=== PATIENT | female | born 1995 | race Caucasian/White ===

== ENCOUNTER 2017-01-11 08:30 | Inpatient (IN) ==
[2017-01-11] MEDS ORDERED: 0.9 % Sodium Chloride 1,000 ML IVC ONE ×2 (08:42→21:32)
[2017-01-11] MEDS ORDERED: Ondansetron 4 MG/2 ML VIAL IVP ONE (08:42)
--- NOTE | 2017-01-11 08:46 | Emergency Department Note ---
Disposition Clinical Impression: Pyelonephritis, Ureterolithiasis Disposition: Admitted As Inpatient Condition: Fair Time of Disposition: 10:00 Female Urogenital HPI - General Chief complaint: ED Back Pain/Injury Stated complaint: Back/Abd Pain that feels horrible Time Seen by Provider: 01/11/17 08:36 Source: patient, family Limitations: no limitations Nursing Notes Reviewed: Yes Vital Signs Reviewed: Yes - History of Present Illness HPI Narrative: Alert and oriented nontoxic appearing 21-year-old female presents to the emergency department for a complaint of left flank pain that radiates into her groin. The patient states symptoms began approximately 2 weeks ago. She states that her mother gave her a "antibiotic that she had laying around the house" and that symptoms resolved. The patient states that she stopped taking the antibiotics as soon as she felt relief of symptoms. She states that yesterday, however, her pain returned. She now rates her pain an 8 out of 10 on a 10 point scale and describes it as sharp in nature. She now complains of subjective fevers, nausea, vomiting, and urinary urgency. She denies any dysuria, urinary frequency, hematuria. She does admit to mild vaginal discharge of bloody clots, however she is 2 weeks status post vaginal delivery of her . Pt Subjective Complaint: other (left flank pain, urinary urgency) Onset (ago): week(s) (2 weeks) Location: suprapubic, other (left flank) Radiation: other (left groin) Severity: severe Severity scale (1-10): 8 Quality: sharp Duration: gradually worsening Improves with: none Worsens with: none Urinary Symptoms: urgency, flank pain, no dysuria, no frequency, no hematuria, no foul smelling urine Vaginal discharge: blood clots : no Associated symptoms: Reports: nausea/vomiting, fever/chills - Related Data Home Medications Medication Instructions Recorded Confirmed Ibuprofen [Advil] 200 mg PO Q6H PRN 01/11/17 01/11/17 Allergies Allergy/AdvReac Type Severity Reaction Status Date / Time No Known Allergies Allergy Verified 01/11/17 10:14 Constitutional: Reports: as per HPI, fever, chills. Denies: weakness, weight change Eyes: Denies: eye pain, eye discharge, vision change ENT ED: Denies: ear pain, throat pain, dental pain, hearing loss, epistaxis, congestion, dysphagia Cardiovascular: Denies: chest pain, palpitations, dyspnea on exertion, edema, syncope Respiratory: Denies: cough, dyspnea, wheezes, hemoptysis, stridor Gastrointestinal: Reports: as per HPI, abdominal pain (Suprapubic pain and discomfort), nausea, vomiting. Denies: diarrhea, constipation, hematemesis, melena, hematochezia Genitourinary: Reports: as per HPI, urgency, discharge (Bloody). Denies: dysuria, frequency, hematuria Musculoskeletal: Reports: as per HPI, back pain (Left flank pain). Denies: neck pain, arthralgia, myalgia Integumentary: Denies: rash, abrasion, lesions Neurological: Denies: headache, weakness, numbness, paresthesias, confusion, abnormal gait, vertigo Psychiatric: Denies: anxiety, depression, suicidal thoughts, homicidal thoughts , auditory hallucinations, visual hallucinations Endocrine: Denies: fatigue Hematological/Lymphatic: Denies: easy bleeding, easy bruising Allergic/Immunologic: Denies: facial swelling, urticaria Past Medical History - Past Medical History Attestation: Yes The following information was validated with the patient. Source: patient Medical history: Reports: no medical history Surgical history: Reports: no surgical history Psychiatric history: Reports: no psych history MINERAL SURVEYING TECHNICIAN history: Reports: no MINERAL SURVEYING TECHNICIAN history - Social History Smoking Status: Never smoker Smokeless Tobacco Status: No Alcohol use: Reports: none Drug use: Reports: none Physical Exam - General Limitations: no limitations General appearance: alert, in no apparent distress - Head Head exam: atraumatic, normocephalic, normal inspection - Eye Eye exam: Present: normal appearance, PERRL, EOMI. Absent: nystagmus - ENT ENT exam: mucous membranes moist - Neck Neck exam: Present: normal inspection, full ROM, trachea midline - Chest Chest inspection: Present: normal inspection, symmetric chest wall rise - Respiratory Respiratory exam: Present: normal lung sounds bilaterally. Absent: respiratory distress, wheezes, stridor, accessory muscle use, prolonged expiratory phase - Cardiovascular Cardiovascular exam: Present: regular rate, normal rhythm, normal heart sounds - Abdominal Exam Abdominal exam: Present: soft, Non-Tender, tenderness, normal bowel sounds. Absent: distention, guarding, rebound, rigidity Abdominal tenderness: Present: suprapubic, moderate - Extremities Exam Extremities exam: Present: normal inspection, full ROM. Absent: tenderness, pedal edema - Back Exam Back exam: Present: normal inspection, full ROM, CVA tenderness (L). Absent: tenderness, CVA tenderness (R) - Neurological Exam Neurological exam: Present: alert, oriented X3 - Psychiatric Psychiatric exam: Present: normal affect, normal mood - Skin Skin exam: Present: warm, dry, intact, normal color. Absent: rash, cyanosis, diaphoresis, erythema Course Course Narrative: We will obtain a urinalysis, urine , CBC, and BMP. We will administer IV fluids and IV Zofran and reevaluate. Urinalysis shows the presence of a urinary tract infection. We will obtain a CT of the abdomen and pelvis without contrast to evaluate for the presence of a stone. 0930: I have discussed this patient's case with Dr. Contreras. Dr. Contreras has had a [id number] evaluation with the patient and agrees with the above plan. 1015: I spoke with Dr. Quezada of the hospitalist service requesting admission to the hospital. Dr. Quezada states that he will evaluate the patient in the ED. - Reevaluation(s) Reevaluation #1: Patient states moderate improvement of symptoms after the administration of IV fluid and IV Zofran. CT scan shows a 2 mm stone in the proximal one third of the left ureter that is causing moderate hydroureter and hydronephrosis. I have discussed with the patient the option of the possibility of hospital admission for IV antibiotics and symptomatic management and she is agreeable to this. At this time, I have paged the hospitalist in the morning awaiting a return call. Time: 09:58 Vital Signs Temperature 97.3 F L 01/11/17 08:32 Pulse Rate 83 01/11/17 08:32 Respiratory Rate 16 01/11/17 08:32 Blood Pressure 107/71 01/11/17 08:32 O2 Sat by Pulse Oximetry 98 01/11/17 08:32 Temperature 97.3 F L 01/11/17 08:32 Pulse Rate 76 01/11/17 09:05 Respiratory Rate 16 01/11/17 11:51 Blood Pressure 103/83 01/11/17 11:51 O2 Sat by Pulse Oximetry 98 01/11/17 09:05 Oxygen Delivery Oxygen Delivery Room Air Urogenital-Female - Medical Records Medical records reviewed: Yes I reviewed the patient's medical records. - Lab Data Lab results reviewed: Yes I reviewed the patient's lab results. Lab results narrative: Laboratory Last Values WBC 11.6 K/mcL (4.3-11.1) H 01/11/17 08:57 RBC 3.72 M/mcL (3.82-4.97) L 01/11/17 08:57 Hgb 10.5 g/dL (11.5-15.4) L 01/11/17 08:57 Hct 32.3 % (35.3-44.9) L 01/11/17 08:57 MCV 86.8 fL (83.0-100.0) 01/11/17 08:57 MCH 28.2 pg (28.0-33.3) 01/11/17 08:57 MCHC 32.5 g/dL (31.6-35.5) 01/11/17 08:57 RDW 12.7 % (11.5-14.5) 01/11/17 08:57 Plt Count 294 K/mcL (140-400) 01/11/17 08:57 MPV 10.0 fL (9.4-12.4) 01/11/17 08:57 Immature Gran % 0.7 % (0-4) 01/11/17 08:57 Seg Neutrophils % 90.8 % 01/11/17 08:57 Lymphocytes % 7.2 % 01/11/17 08:57 Monocytes % 0.4 % 01/11/17 08:57 Eosinophils % 0.6 % 01/11/17 08:57 Basophils % 0.3 % 01/11/17 08:57 Neutrophils # 10.5 K/mcL (1.6-8.9) H 01/11/17 08:57 Lymphocytes # 0.8 K/mcL (0.6-4.6) 01/11/17 08:57 Monocytes # 0.1 K/mcL (0.0-1.3) 01/11/17 08:57 Eosinophils # 0.1 K/mcL (0.0-0.6) 01/11/17 08:57 Basophils # 0.0 K/mcL (0.0-0.2) 01/11/17 08:57 Sodium 143 mEq/L (136-145) 01/11/17 08:57 Potassium 3.6 mEq/L (3.5-4.5) 01/11/17 08:57 Chloride 110 mEq/L (98-109) H 01/11/17 08:57 Carbon Dioxide 20 mEq/L (19-29) 01/11/17 08:57 BUN 13 mg/dL (7-20) 01/11/17 08:57 Creatinine 0.74 mg/dL (0.57-1.11) 01/11/17 08:57 Est GFR ( Amer) > 60 (> 60) 01/11/17 08:57 Est GFR (Non-Af Amer) > 60 (> 60) 01/11/17 08:57 BUN/Creatinine Ratio 18 (6-26) 01/11/17 08:57 Glucose 99 mg/dL (70-99) 01/11/17 08:57 Calculated Osmolality 296 (280-300) 01/11/17 08:57 Calcium 8.7 mg/dL (8.6-10.8) 01/11/17 08:57 Urine Color Yellow (Yellow) 01/11/17 08:44 Urine Clarity Turbid (Clear) A 01/11/17 08:44 Urine pH 6.0 pH Units (5.0-8.0) 01/11/17 08:44 Ur Specific [place] 1.011 (1.010-1.025) 01/11/17 08:44 Urine Protein 30 mg/dL (Neg-Trace) H 01/11/17 08:44 Urine Glucose (UA) Normal mg/dL (Normal) 01/11/17 08:44 Urine Ketones Negative mg/dL (Negative) 01/11/17 08:44 Urine Blood Moderate (Negative) H 01/11/17 08:44 Urine Nitrite Negative (Negative) 01/11/17 08:44 Urine Bilirubin Negative (Negative) 01/11/17 08:44 Urine Urobilinogen Normal mg/dL (Normal) 01/11/17 08:44 Ur Leukocyte Esterase Large (Negative) H 01/11/17 08:44 Urine Microscopic RBC 15-30 per hpf (0-3) H 01/11/17 08:44 Urine Microscopic WBC TNTC per hpf (0-3) H 01/11/17 08:44 Ur Squamous Epith Cells Many per lpf (None-Few) H 01/11/17 08:44 Urine Bacteria Moderate per hpf (None-Few) H 01/11/17 08:44 Hyaline Casts None Seen per lpf (None-Few) 01/11/17 08:44 Ur Culture Indicated? YES (NO) A 01/11/17 08:44 Urine Test Negative (Negative) 01/11/17 08:44 Result diagrams: 01/11/17 08:57 01/11/17 08:57 Lab Results 01/11/17 01/11/17 01/11/17 Range/Units 08:44 08:44 08:57 WBC 11.6 H (4.3-11.1) K/mcL RBC 3.72 L (3.82-4.97) M/mcL Hgb 10.5 L (11.5-15.4) g/dL Hct 32.3 L (35.3-44.9) % MCV 86.8 (83.0-100.0) fL MCH 28.2 (28.0-33.3) pg MCHC 32.5 (31.6-35.5) g/dL RDW 12.7 (11.5-14.5) % Plt Count 294 (140-400) K/mcL MPV 10.0 (9.4-12.4) fL Immature Gran % 0.7 (0-4) % Seg Neutrophils % 90.8 % Lymphocytes % 7.2 % Monocytes % 0.4 % Eosinophils % 0.6 % Basophils % 0.3 % Neutrophils # 10.5 H (1.6-8.9) K/mcL Lymphocytes # 0.8 (0.6-4.6) K/mcL Monocytes # 0.1 (0.0-1.3) K/mcL Eosinophils # 0.1 (0.0-0.6) K/mcL Basophils # 0.0 (0.0-0.2) K/mcL Sodium (136-145) mEq/L Potassium (3.5-4.5) mEq/L Chloride (98-109) mEq/L Carbon Dioxide (19-29) mEq/L BUN (7-20) mg/dL Creatinine (0.57-1.11) mg/dL Est GFR ( Amer) (> 60) Est GFR (Non-Af Amer) (> 60) BUN/Creatinine Ratio (6-26) Glucose (70-99) mg/dL Calculated Osmolality (280-300) Calcium (8.6-10.8) mg/dL Urine Color Yellow (Yellow) Urine Clarity Turbid A (Clear) Urine pH 6.0 (5.0-8.0) pH Units Ur Specific [place] 1.011 (1.010-1.025) Urine Protein 30 H (Neg-Trace) mg/dL Urine Glucose (UA) Normal (Normal) mg/dL Urine Ketones Negative (Negative) mg/dL Urine Blood Moderate H (Negative) Urine Nitrite Negative (Negative) Urine Bilirubin Negative (Negative) Urine Urobilinogen Normal (Normal) mg/dL Ur Leukocyte Esterase Large H (Negative) Urine Microscopic RBC 15-30 H (0-3) per hpf Urine Microscopic WBC TNTC H (0-3) per hpf Ur Squamous Epith Cells Many H (None-Few) per lpf Urine Bacteria Moderate H (None-Few) per hpf Hyaline Casts None Seen (None-Few) per lpf Ur Culture Indicated? YES A (NO) Urine Test Negative (Negative) 01/11/17 Range/Units 08:57 WBC (4.3-11.1) K/mcL RBC (3.82-4.97) M/mcL Hgb (11.5-15.4) g/dL Hct (35.3-44.9) % MCV (83.0-100.0) fL MCH (28.0-33.3) pg MCHC (31.6-35.5) g/dL RDW (11.5-14.5) % Plt Count (140-400) K/mcL MPV (9.4-12.4) fL Immature Gran % (0-4) % Seg Neutrophils % % Lymphocytes % % Monocytes % % Eosinophils % % Basophils % % Neutrophils # (1.6-8.9) K/mcL Lymphocytes # (0.6-4.6) K/mcL Monocytes # (0.0-1.3) K/mcL Eosinophils # (0.0-0.6) K/mcL Basophils # (0.0-0.2) K/mcL Sodium 143 (136-145) mEq/L Potassium 3.6 (3.5-4.5) mEq/L Chloride 110 H (98-109) mEq/L Carbon Dioxide 20 (19-29) mEq/L BUN 13 (7-20) mg/dL Creatinine 0.74 (0.57-1.11) mg/dL Est GFR ( Amer) > 60 (> 60) Est GFR (Non-Af Amer) > 60 (> 60) BUN/Creatinine Ratio 18 (6-26) Glucose 99 (70-99) mg/dL Calculated Osmolality 296 (280-300) Calcium 8.7 (8.6-10.8) mg/dL Urine Color (Yellow) Urine Clarity (Clear) Urine pH (5.0-8.0) pH Units Ur Specific [place] (1.010-1.025) Urine Protein (Neg-Trace) mg/dL Urine Glucose (UA) (Normal) mg/dL Urine Ketones (Negative) mg/dL Urine Blood (Negative) Urine Nitrite (Negative) Urine Bilirubin (Negative) Urine Urobilinogen (Normal) mg/dL Ur Leukocyte Esterase (Negative) Urine Microscopic RBC (0-3) per hpf Urine Microscopic WBC (0-3) per hpf Ur Squamous Epith Cells (None-Few) per lpf Urine Bacteria (None-Few) per hpf Hyaline Casts (None-Few) per lpf Ur Culture Indicated? (NO) Urine Test (Negative) - Radiology Data Radiology results reviewed: Yes I reviewed the patient's radiology results. Abdomen/Pelvis CT 01/11/17 09:13 IMPRESSION: 1. 2 mm calculus in the proximal 1/3 of the left ureter causing moderate hydronephrosis. 2. Nonobstructive calculus in the right kidney measuring 2 mm. D/ / Angelo Hughes MD / Angelo Hughes MD Interpreting Provider: Angelo Hughes MD Attestation Statement - Attestation Attestation: For this encounter, I have reviewed the FILTER [employer] SUPERVISOR or PA documentation, treatment plan, and medical decision making; and I have had face to face time with this patient. 21-year-old who comes in complaining of left flank pain. Patient is status post vaginal delivery 2 weeks ago. Patient has had nausea vomiting. States she's had a fever although here she is afebrile. The physical examination the patient appears pale and is in moderate amount of pain. Urine does show infection we will obtain a CT scan to rule out a complicated stone if negative for stone patient will go home on antibiotics if the stones presents that she may require admission.
[2017-01-11 08:55] LABS: Bilirubin,Urine Negative (Negative); Blood,Urine Moderate (Negative); Clarity,Urine Turbid (Clear); Color,Urine Yellow (Yellow); Glucose,Urine (UA) Normal (Normal); Ketones,Urine Negative (Negative); Leukocyte Esterase,Urine Large (Negative); Nitrite,Urine Negative (Negative); Protein,Urine 30 mg/dL (Neg-Trace); Specific Gravity,Urine 1.011 (1.010-1.025); Urobilinogen,Urine Normal (Normal)
[2017-01-11 08:58] LABS: Bacteria,Urine Moderate per hpf (None-Few); Hyaline Casts,Urine None Seen per lpf (None-Few); RBC,Urine 15-30 per hpf (0-3); Squamous Epithelial Cell,Urine Many per lpf (None-Few); WBC,Urine TNTC per hpf (0-3)
[2017-01-11] MEDS ORDERED: Ketorolac 30 MG/ML VIAL IVP ONE (08:59)
[2017-01-11 09:08] LABS: Basophils % 0.3 %; Eosinophils # 0.1 K/mcL (0.0-0.6); Eosinophils % 0.6 %; Hematocrit 32.3 % (35.3-44.9); Hemoglobin 10.5 g/dL (11.5-15.4); Immature Granulocytes % 0.7 % (0-4); Lymphocytes # 0.8 K/mcL (0.6-4.6); Lymphocytes % 7.2 %; Mean Corpuscular HGB Conc 32.5 g/dL (31.6-35.5); Mean Corpuscular Hemoglobin 28.2 pg (28.0-33.3); Mean Corpuscular Volume 86.8 fL (83.0-100.0); Monocytes # 0.1 K/mcL (0.0-1.3); Monocytes % 0.4 %; Neutrophils # 10.5 K/mcL (1.6-8.9); Platelet Count 294 K/mcL (140-400); Red Blood Count 3.72 M/mcL (3.82-4.97); Red Cell Distribution Width 12.7 % (11.5-14.5); Segmented Neutrophils % 90.8 %
[2017-01-11 09:24] LABS: BUN/Creatinine Ratio 18 (6-26); Blood Urea Nitrogen 13 mg/dL (7-20); Calcium 8.7 mg/dL (8.6-10.8); Carbon Dioxide 20 mEq/L (19-29); Chloride 110 mEq/L (98-109); Glucose 99 mg/dL (70-99); Osmolality,Calculated 296 (280-300); Potassium 3.6 mEq/L (3.5-4.5); Sodium 143 mEq/L (136-145); eGFR For African Americans > 60 (> 60); eGFR For Non-African Americans > 60 (> 60)
[2017-01-11] MEDS ORDERED: Ondansetron 4 MG/2 ML VIAL IVP PRN (10:45)
[2017-01-11] MEDS ORDERED: Acetaminophen 325 MG TABLET PO PRN (10:45)
[2017-01-11] MEDS ORDERED: Naloxone 0.4 MG/ML INJ IVP PRN (10:45)
[2017-01-11] MEDS ORDERED: Ketorolac 30 MG/ML VIAL IVP PRN (10:45)
--- NOTE | 2017-01-11 11:08 | Internal Med History&Physical ---
Date of Encounter: 01/11/17 Time of Encounter: 11:00 Assessment and Plan (1) Pyelonephritis Current visit: Yes Status: Acute Patient reporting Left flank pain, left lower quadrant pain, nausea, vomiting, chills and sweats. UA concerning for infection, awaiting culture results. CT abdomen and pelvis showed 2mm calculus in the proximal 1/3 of the left ureter causing moderate hydronephrosis and mild hydroureter as well as a nonobstructive calculus in the right kidney measuring 2mm. 1L bolus given in ED Continue with IV fluids of 0.9NS at 100mL/hr IV ceftriaxone 1g daily await urine culture. (2) Bilateral kidney stones Current visit: Yes Status: Acute CT abdomen and pelvis showed 2mm calculus in the proximal 1/3 of the left ureter causing moderate hydronephrosis and nonobstructive calculus in the right kidney measuring 2mm. Urology consulted, spoke with Dr. Bee, he will see the patient later today. (3) Nausea Current visit: Yes Status: Acute PRN zofran (4) Abdominal pain Current visit: Yes Status: Acute Related to the pyelonephritis and stone in the left ureter. PRN tyelonol and toradol for pain. Qualifiers: Abdominal location: left lower quadrant Qualified Code(s): R10.32 - Left lower quadrant pain (5) DVT prophylaxis Current visit: Yes Status: Acute encourage ambulation anti-embolic stockings Lovenox 40mg SQ daily Internal Medicine - H&P: HPI Chief complaint: left flank and left lower quadrant pain Admitted From: Emergency Dept Plans for Post Hospital Care: Home History of present illness: Ms. Mcelroy is a 21 year old female who is 2 weeks post- who presented to the emergency department with complaints of left flank and left lower quadrant pain. She reports the pain started a week and a half ago, and she took some of her mother's left over antibiotics and the pain went away. The pain returned last night and has been worsening, and she was unable to sleep. She tried heat packs, ice, position changes and ibuprofen without relief. It was accompanied by nausea and vomiting, chills, and sweats. She denies any pain or burning with urination, diarrhea, headache, cough, chest pain or palpitations. She reports she has some clear and white vaginal discharge with occasional bloody vaginal discharge consistent with vaginal delivery 2 weeks ago. Evaluation in the ED included a UA consistent with infection and a CT of the Abdomen and pelvis which showed 2mm calculus in the proximal 1/3 of the left ureter causing moderate hydronephrosis and mild hydroureter as well as a non-obstructive calculus in the right kidney measuring 2mm. On exam, she is alert and oriented, in no distress. Lungs are clear bilaterally to auscultation, heart has regular rate and rhythm. Abdomen is mildly tender in LLQ. She has left CVA tenderness. Past Med Surg Social Fam HX - Past Medical History Medical history: no medical history Psychiatric history: no psych history - Past Surgical History Surgical History: no surgical history - Social History Smoking Status: Former smoker Smokeless Tobacco Status: No Alcohol use: none Drug use: none - Family History Grandmother Adopted: No Family Member Ethnicity: Non- Living Status: Still Living Hx Family Respiratory Disorders: Yes (COPD) Internal Medicine - H&P: Meds Ibuprofen [Advil] 200 mg PO Q6H PRN 01/11/17 [History] Allergies No Known Allergies Allergy (Verified 01/11/17 10:14) All Systems PM: A 10-system review of systems was performed and is negative for pertinent findings except as documented above in the HPI. - Constitutional Constitutional: chills, night sweats, no fever(s) - EENT Eyes: no change in vision, no discharge, no pain, no photophobia Ears: no ear discharge, no ear pain, no tinnitus Nose, mouth and throat: no dysphagia, no nasal discharge, no neck pain, no sore throat - Breasts Breasts: nipple discharge (milk ) - Cardiovascular Cardiovascular ROS IM: no chest pain, no diaphoresis, no dyspnea, no lightheadedness, no palpitations, no syncope - Respiratory Respiratory: no cough, no dyspnea, no wheezing, no excessive phlegm production - Gastrointestinal Gastrointestinal: abdominal pain (LLQ), nausea, vomiting, no diarrhea, no hematemesis, no hematochezia, no melena - Genitourinary Genitourinary: flank pain (left), nipple discharge (milk), vaginal discharge, no change in urinary stream, no dysuria, no hematuria - Musculoskeletal Musculoskeletal ROS IM: no numbness, no tingling - Integumentary Integumentary IM: no rash, no unusual bruising - Neurological Neurological ROS: no confusion, no convulsions, no focal weakness, no numbness, no tingling, no tremor(s) - Hematologic/Lymphatic Hematologic/Lymphatic: no easy bruising - Constitutional Vitals: Temp Pulse Resp BP Pulse Ox 97.3 F L 76 14 113/63 98 01/11/17 08:32 01/11/17 09:05 01/11/17 09:05 01/11/17 09:05 01/11/17 09:05 General appearance: Present: A&O X 3, pleasant, no acute distress - Head Head exam: Present: atraumatic, normocephalic - Eye Eye exam: Present: PERRL, conjuntiva pink, sclera anicteric Pupils: Present: PERRL - Neck Neck exam general surgery: Present: supple, trachea midline. Absent: lymphadenopathy - Respiratory Respiratory exam: Present: CTAB. Absent: accessory muscle use, rales, rhonchi, wheezes - Cardiovascular Cardiovascular exam: Present: RRR, +S1, +S2. Absent: diastolic murmur, gallop, rubs, systolic murmur - GI/Abdominal GI/Abdominal exam: Present: normal bowel sounds, soft, tenderness (LLQ), no peritoneal signs. Absent: distended - Extremities Exam Extremities exam: Present: warm, radial pulses palpable and symetrical. Absent : calf tenderness, cyanotic, pedal edema - Back Exam Back exam: Present: CVA tenderness (L). Absent: CVA tenderness (R) - Neurological Exam Neurological exam: Present: CN II-XII intact, oriented X3, no focal deficits. Absent: facial droop, speech deficit - Skin Skin exam: Present: dry, intact Internal Med - H&P Results - Labs CBC & Chem 7: 01/11/17 08:57 01/11/17 08:57 Labs: Short CBC 01/11/17 Range/Units 08:57 WBC 11.6 H (4.3-11.1) K/mcL Hgb 10.5 L (11.5-15.4) g/dL Hct 32.3 L (35.3-44.9) % Plt Count 294 (140-400) K/mcL Neutrophils # 10.5 H (1.6-8.9) K/mcL BMP 01/11/17 08:57 Sodium 143 Potassium 3.6 Chloride 110 H Carbon Dioxide 20 BUN 13 Creatinine 0.74 Glucose 99 Calcium 8.7 Urine 01/11/17 Range/Units 08:44 Urine Color Yellow (Yellow) Urine Clarity Turbid A (Clear) Urine pH 6.0 (5.0-8.0) pH Units Ur Specific [place] 1.011 (1.010-1.025) Urine Protein 30 H (Neg-Trace) mg/dL Urine Glucose (UA) Normal (Normal) mg/dL - Impressions ITS Impressions Abdomen/Pelvis CT 01/11/17 09:13 IMPRESSION: 1. 2 mm calculus in the proximal 1/3 of the left ureter causing moderate hydronephrosis. 2. Nonobstructive calculus in the right kidney measuring 2 mm. D/ / Angelo Hughes MD / Angelo Hughes MD Interpreting Provider: Angelo Hughes MD
[2017-01-11] MEDS: 0.9 % Sodium Chloride 1,000 ML IVC SCH (14:09)
--- NOTE | 2017-01-11 19:21 | Urology - Consult Note ---
Date of Encounter: 01/11/17 Time of Encounter: 19:19 - Assessment and Plan (1) Ureteral stone with hydronephrosis Current Visit: Yes Status: Acute Assessment and plan: I'm not convinced that the patient has pyelonephritis. Will follow urine cultures. I suspect that her abnormal UA and symptoms are all from the obstructing ureteral stone. I provided an option of trial of passage and potential discharge from the hospital versus proceeding with a stone extraction. Patient is leaning towards proceeding with a stone extraction while she is in the hospital. I will reassess patient in the morning but tentatively schedule her for surgery on Tuesday. Urology CN:HPI Consult date: 01/11/17 Reason for consult Urology: Hydronephrosis History of present illness: 21-year-old female with no history of kidney stones. Recent CT scan with a 2 mm proximal left ureteral calculi with hydronephrosis. She is admitted to the hospitalist service. She states she is continuing to have pain. Admits to low-grade fever at home. Past Med Surg Social Fam HX - Past Medical History Medical history: no medical history Psychiatric history: no psych history - Past Surgical History Surgical History: no surgical history - Social History Smoking Status: Never smoker Smokeless Tobacco Status: No Alcohol use: none Drug use: none - Family History Grandmother Adopted: No Family Member Ethnicity: Non- Living Status: Still Living Hx Family Respiratory Disorders: Yes (COPD) Medications and Allergies Ibuprofen [Advil] 200 mg PO Q6H PRN 01/11/17 [History] Allergies No Known Allergies Allergy (Verified 01/11/17 10:14) Review of Systems - Constitutional fever(s), no malaise - EENT Nose, mouth and throat: no dizziness - Cardiovascular no chest pain - Respiratory no cough - Gastrointestinal abdominal pain, nausea - Genitourinary Genitourinary: dysuria, flank pain - Musculoskeletal back pain - Integumentary no erythema - Neurological no confusion - Psychiatric no anxiety - Hematologic/Lymphatic no easy bleeding - Allergic/Immunologic no throat swelling Exam Initial Vital Signs Temp Pulse Resp BP Pulse Ox 97.3 F L 83 16 107/71 98 01/11/17 08:32 01/11/17 08:32 01/11/17 08:32 01/11/17 08:32 01/11/17 08:32 - General physical appearance Present: well developed, no distress - Eyes Present: PERRL - ENT Present: normal nares - Neck Present: no masses - Respiratory Present: normal respiratory effort - Cardiovascular Cardiovascular exam IM: RRR - Abdomen Abdomen: Present: soft - Integumentary Present: no rash - Neurologic Present: normal coordination. Absent: disoriented, confused Urology Results - Labs 01/11/17 08:57 01/11/17 08:57 Abnormal lab results WBC 11.6 K/mcL (4.3-11.1) H 01/11/17 08:57 RBC 3.72 M/mcL (3.82-4.97) L 01/11/17 08:57 Hgb 10.5 g/dL (11.5-15.4) L 01/11/17 08:57 Hct 32.3 % (35.3-44.9) L 01/11/17 08:57 Neutrophils # 10.5 K/mcL (1.6-8.9) H 01/11/17 08:57 Chloride 110 mEq/L (98-109) H 01/11/17 08:57 Urine Clarity Turbid (Clear) A 01/11/17 08:44 Urine Protein 30 mg/dL (Neg-Trace) H 01/11/17 08:44 Urine Blood Moderate (Negative) H 01/11/17 08:44 Ur Leukocyte Esterase Large (Negative) H 01/11/17 08:44 Urine Microscopic RBC 15-30 per hpf (0-3) H 01/11/17 08:44 Urine Microscopic WBC TNTC per hpf (0-3) H 01/11/17 08:44 Ur Squamous Epith Cells Many per lpf (None-Few) H 01/11/17 08:44 Urine Bacteria Moderate per hpf (None-Few) H 01/11/17 08:44 Ur Culture Indicated? YES (NO) A 01/11/17 08:44 All other labs normal. Consult Discharge Plan - Plan Referrals: NO,PCP [Primary Care Provider] -
[2017-01-11] MEDS ORDERED: Ibuprofen 400 MG TABLET PO PRN (21:32)
[2017-01-12] MEDS: 0.9 % Sodium Chloride 1,000 ML IVC SCH ×2 (02:22→13:44)
[2017-01-12] MEDS: *HR* Enoxaparin 40 MG/0.4 ML SYRINGE SQ SCH (05:25)
[2017-01-12 06:29] LABS: Basophils % 0.4 %; Eosinophils % 0.4 %; Hemoglobin 9.4 g/dL (11.5-15.4); Immature Granulocytes % 0.8 % (0-4); Lymphocytes # 0.8 K/mcL (0.6-4.6); Lymphocytes % 8.2 %; Mean Corpuscular HGB Conc 32.4 g/dL (31.6-35.5); Mean Corpuscular Hemoglobin 28.2 pg (28.0-33.3); Mean Corpuscular Volume 87.1 fL (83.0-100.0); Mean Platelet Volume 10.5 fL (9.4-12.4); Monocytes # 0.4 K/mcL (0.0-1.3); Monocytes % 3.6 %; Neutrophils # 8.4 K/mcL (1.6-8.9); Platelet Count 232 K/mcL (140-400); Red Blood Count 3.33 M/mcL (3.82-4.97); Red Cell Distribution Width 13.2 % (11.5-14.5); Segmented Neutrophils % 86.6 %
--- NOTE | 2017-01-12 06:38 | Urology Progress Note ---
Date of Encounter: 01/12/17 Time of Encounter: 06:36 - Assessment and Plan (1) Ureteral stone with hydronephrosis Current Visit: Yes Status: Acute Assessment and plan: need to proceed with stone extraction and stent today bc of fever last night. will attempt to retrieve stone as long as it does not require significant manipulation of ureter (bc of fever). Progress Note Subjective: still having pain, fever Narrative: fever to 103 last night. no stone has passed. urine is darker. Objective Initial Vital Signs Temp Pulse Resp BP Pulse Ox 97.3 F L 83 16 107/71 98 01/11/17 08:32 01/11/17 08:32 01/11/17 08:32 01/11/17 08:32 01/11/17 08:32 - General physical appearance Present: well developed, no distress - Labs 01/12/17 05:40 01/11/17 08:57 - VTE Documentation of Mechanical Device: Graduated compression elastic hosiery Consult Discharge Plan - Plan Referrals: NO,PCP [Primary Care Provider] -
[2017-01-12 06:40] LABS: BUN/Creatinine Ratio 15 (6-26); Blood Urea Nitrogen 10 mg/dL (7-20); Calcium 7.5 mg/dL (8.6-10.8); Carbon Dioxide 22 mEq/L (19-29); Chloride 112 mEq/L (98-109); Glucose 97 mg/dL (70-99); Osmolality,Calculated 291 (280-300); Potassium 3.6 mEq/L (3.5-4.5); Sodium 141 mEq/L (136-145); eGFR For African Americans > 60 (> 60); eGFR For Non-African Americans > 60 (> 60)
[2017-01-12] MEDS ORDERED: Acetaminophen 325 MG TABLET PO PRN (11:05)
[2017-01-12] MEDS ORDERED: Ibuprofen 400 MG TABLET PO PRN (11:06)
--- NOTE | 2017-01-12 17:33 | Internal Med Progress Note ---
Date of Encounter: 01/12/17 Time of Encounter: 11:00 - Assessment and plan (1) Sepsis Current Visit: Yes Status: Acute Assessment and plan: Secondary to acute pyelonephritis. Urine culture growing gram-negative rods. check lactic acid. Continue IV fluids and empiric antibiotics with IV ceftriaxone 2 g daily Qualifiers: Sepsis type: sepsis due to unspecified organism Qualified Code(s): A41.9 - Sepsis, unspecified organism (2) Pyelonephritis Current Visit: Yes Status: Acute Assessment and plan: Fever, left flank pain, nausea and vomiting. 01/11: Urine culture growing gram-negative darrian. Blood Cultures taken. temp of 103.1 at 20.30pm. Ceftriaxone increased to 2 g. Continue ceftriaxone and IV fluids. Follow-up final results of urine and blood cultures. (3) Ureteral stone with hydronephrosis Current Visit: Yes Status: Acute Assessment and plan: CT of the abdomen and pelvis revealed 2 mm Bry was in the proximal third of the left ureter causing moderate hydronephrosis. Nonobstructive plaque in the right kidney measuring 2 mm. urology service is following. Plan for ureteroscopy today to attempt removal of stone. (4) Bilateral kidney stones Current Visit: Yes Status: Acute - Subjective Interval history: Patient feels warm and has mild left flank pain. She is eager to go home and see her baby. - Constitutional Vitals: Temp Pulse Resp BP Pulse Ox 98.6 F 102 16 107/67 99 01/12/17 15:22 01/12/17 15:22 01/12/17 15:22 01/12/17 15:22 01/12/17 15:22 General appearance: Present: cooperative, A&O X 3, pleasant, no acute distress, answers questions appropriately - Eye Eye exam: Present: PERRL, sclera anicteric - Neck Neck exam general surgery: Present: supple, trachea midline. Absent: lymphadenopathy - Respiratory Respiratory exam: Present: CTAB - Cardiovascular Cardiovascular exam: Present: RRR - GI/Abdominal GI/Abdominal exam: Present: normal bowel sounds, soft. Absent: distended, tenderness - Extremities Exam Extremities exam: Absent: pedal edema - Back Exam Back exam: Present: CVA tenderness (L). Absent: CVA tenderness (R) - Neurological Exam Neurological exam: Present: alert, oriented X3. Absent: facial droop, speech deficit - Skin Skin exam: Present: warm. Absent: rash Internal Medicine: Result - Labs CBC & Chem 7: 01/12/17 05:40 01/12/17 05:40 Labs: Short CBC 01/12/17 Range/Units 05:40 WBC 9.7 (4.3-11.1) K/mcL Hgb 9.4 L (11.5-15.4) g/dL Hct 29.0 L (35.3-44.9) % Plt Count 232 (140-400) K/mcL Neutrophils # 8.4 (1.6-8.9) K/mcL BMP 01/12/17 05:40 Sodium 141 Potassium 3.6 Chloride 112 H Carbon Dioxide 22 BUN 10 Creatinine 0.68 Glucose 97 Calcium 7.5 L - VTE Documentation of Mechanical Device: Graduated compression elastic hosiery Consult Discharge Plan - Plan Referrals: NO,PCP [Primary Care Provider] -
--- NOTE | 2017-01-12 17:36 | Anesthesia Evaluation PreOp ---
Date of Encounter: 01/12/17 Time of Encounter: 17:36 - Past History Planned Operation: L-USE w/laser Alcohol Use: none Drug use: none Medications and Allergies Ibuprofen [Advil] 200 mg PO Q6H PRN 01/11/17 [History] Allergies No Known Allergies Allergy (Verified 01/11/17 10:14) Anesthesia Results - Labs 01/12/17 05:40 01/12/17 05:40
--- NOTE | 2017-01-12 18:20 | Event Note ---
Date of Encounter: 01/12/17 Time of Encounter: 18:19 pt passed stone 30 min before scheduled surgery. sent for stone analysis. no need for surgery. ok for discharge per urology.
[2017-01-13 05:53] LABS: Basophils # 0.1 K/mcL (0.0-0.2); Basophils % 0.7 %; Eosinophils # 0.2 K/mcL (0.0-0.6); Eosinophils % 3.4 %; Hemoglobin 9.2 g/dL (11.5-15.4); Immature Platelets 4.8 % (1.1-6.1); Lymphocytes # 1.5 K/mcL (0.6-4.6); Lymphocytes % 21.4 %; Mean Corpuscular HGB Conc 31.7 g/dL (31.6-35.5); Mean Corpuscular Hemoglobin 27.8 pg (28.0-33.3); Mean Corpuscular Volume 87.6 fL (83.0-100.0); Mean Platelet Volume 10.7 fL (9.4-12.4); Monocytes # 0.6 K/mcL (0.0-1.3); Monocytes % 8.3 %; Neutrophils # 4.6 K/mcL (1.6-8.9); Platelet Count 270 K/mcL (140-400); Red Blood Count 3.31 M/mcL (3.82-4.97); Segmented Neutrophils % 65.2 %
[2017-01-13] MEDS: *HR* Enoxaparin 40 MG/0.4 ML SYRINGE SQ SCH (06:10)
[2017-01-13 06:44] VITALS: BP 116/76
[2017-01-13 06:55] LABS: BUN/Creatinine Ratio 13 (6-26); Blood Urea Nitrogen 8 mg/dL (7-20); Calcium 7.6 mg/dL (8.6-10.8); Carbon Dioxide 21 mEq/L (19-29); Chloride 112 mEq/L (98-109); Glucose 88 mg/dL (70-99); Magnesium 1.6 mg/dL (1.7-2.2); Osmolality,Calculated 290 (280-300); Potassium 3.9 mEq/L (3.5-4.5); Sodium 141 mEq/L (136-145); eGFR For African Americans > 60 (> 60); eGFR For Non-African Americans > 60 (> 60)
[2017-01-13] MEDS ORDERED: Magnesium Sulfate 1 GM in D5% in Water 100 ML IVPB ONE (07:53)
--- NOTE | 2017-01-13 08:49 | Discharge Summary ---
Date of Encounter: 01/13/17 Time of Encounter: 08:00 - Discharge Diagnosis (1) Sepsis Priority: Primary Status: Acute Qualifiers: Sepsis type: sepsis due to unspecified organism Qualified Code(s): A41.9 - Sepsis, unspecified organism (2) Pyelonephritis Priority: Primary Status: Acute (3) Ureteral stone with hydronephrosis Priority: Primary Status: Acute (4) Bilateral kidney stones Priority: Primary Status: Acute - Discharge Medications Prescriptions: CefTRIAXone [Rocephin] 1,000 mg IM DAILY #3 vial Cephalexin [Keflex] 500 mg PO BID #10 capsule Home Medications: Ibuprofen [Advil] 200 mg PO Q6H PRN 01/11/17 [History] CefTRIAXone [Rocephin] 1,000 mg IM DAILY #3 vial 01/13/17 [Rx] Cephalexin [Keflex] 500 mg PO BID #10 capsule 01/13/17 [Rx] Allergies/Adverse Reactions: Allergies No Known Allergies Allergy (Verified 01/11/17 10:14) Date of admission: 01/11/17 15:43 Primary care physician: PCP NO - Patient Status Disposition: Left Against Medical Advice Condition: Good Functional capacity at discharge: independent ambulation Overall status at discharge: patient is progressing back to baseline - Discharge Instructions Follow Up With: Cuauhtemoc Penny MD [Non-Partnered Physician] - 01/20/17 2:15 pm - Diet and Activity Activity: resume usual activities as tolerated Diet: regular diet Interval History: patient passed a small stone in her urine yesterday and did not require ureteroscopy. she feels better, and is eager to go home. Hospital course: Ms. Mcleroy is a 21 year old female who is , presented with Fever , left flank pain, nausea and vomiting. She was admitted for sepsis secondary to acute pyelonephritis, and left ureterolithiasis. CT of the abdomen and pelvis revealed 2 mm Bry was in the proximal third of the left ureter causing moderate hydronephrosis, nonobstructive plaque in the right kidney measuring 2 mm. she was started on IV fluid resuscitation and IV ceftriaxone 2 g daily with clinical improvement. urine culture grew Escherichia coli susceptible only to cefoxitin, cefazolin, ceftriaxone and, nitrofurantoin. Resistant to fluoroquinolones, and Bactrim. Patient was eating well and eager to go home. In view of the resistance of the Escherichia coli and pyelonephritis, I will continue ceftriaxone IM for 3 more days and then she can switch to oral Keflex for a total course of 10 days. Nursing staff try to arrange outpatient IM ceftriaxone; however, insurance requires a preauthorization and this will take at least 48 hours. Patient was informed that she needed to stay for IV antibiotics but she wished to leave AMA. I was going to prescribe her at least oral Keflex for a longer course since she was thinking to leave AMA. Patient left before we could give her any prescriptions. - Time Spent with Patient Total time spent providing and/or coordinating discharge services: - Constitutional Vitals: Temp Pulse Resp BP Pulse Ox 98.6 F 71 16 116/76 97 01/13/17 06:39 01/13/17 06:39 01/13/17 06:39 01/13/17 06:39 01/13/17 08:18 General appearance: Present: cooperative, A&O X 3, pleasant, no acute distress, answers questions appropriately - Eye Eye exam: Present: PERRL, sclera anicteric - Neck Neck exam general surgery: Present: supple, trachea midline. Absent: lymphadenopathy - Respiratory Respiratory exam: Present: CTAB - Cardiovascular Cardiovascular exam: Present: RRR - GI/Abdominal GI/Abdominal exam: Present: normal bowel sounds, soft. Absent: distended, tenderness - Extremities Exam Extremities exam: Absent: pedal edema - Back Exam Back exam: Absent: CVA tenderness (L), CVA tenderness (R) - Neurological Exam Neurological exam: Present: alert, oriented X3. Absent: facial droop, speech deficit - Skin Skin exam: Present: intact - VTE Documentation of Mechanical Device: Graduated compression elastic hosiery
== END 2017-01-13 13:54 | disposition left against medical advice (07) | DRG 720 ==
LOC: EMEROO 08:30 → 2ANU 08:30
PROVIDERS: ADMIT Nurse Practitioner Family; ATTEND Internal Medicine

== ENCOUNTER → 2019-04-21 00:52 | Observation (INO) ==
[2019-04-20 20:26] LABS: Bilirubin,Urine Negative (Negative); Blood,Urine Negative (Negative); Clarity,Urine Cloudy (Clear); Color,Urine Yellow (Yellow); Glucose,Urine (UA) Normal (Normal); Ketones,Urine Negative (Negative); Leukocyte Esterase,Urine Moderate (Negative); Nitrite,Urine Negative (Negative); Protein,Urine Negative (Neg-Trace); Specific Gravity,Urine 1.018 (1.010-1.025); Urobilinogen,Urine Normal (Normal)
[2019-04-20 20:29] LABS: Bacteria,Urine Few per hpf (None-Few); Hyaline Casts,Urine None Seen per lpf (None-Few); RBC,Urine 0-3 per hpf (0-3); Squamous Epithelial Cell,Urine Many per lpf (None-Few); WBC,Urine 15-30 per hpf (0-3)
[2019-04-20 20:36] LABS: Amphetamine Screen,Urine Negative ng/mL (Cutoff=1000); Barbiturate Screen,Urine Negative ng/mL (Cutoff=200); Benzodiazepines Screen,Urine Negative ng/mL (Cutoff=200); Cannabinoid Screen,Urine Negative ng/mL (Cutoff = 50); Cocaine Screen,Urine Negative ng/mL (Cutoff= 300); Opiate Screen,Urine Negative ng/mL (Cutoff=300); Phencyclidine Screen,Urine Negative ng/mL (Cutoff=25)
[2019-04-20 21:24] LABS: BUN/Creatinine Ratio 17 (6-26); Blood Urea Nitrogen 8 mg/dL (6-20); Calcium 8.5 mg/dL (8.6-10.3); Carbon Dioxide 27 mEq/L (23-29); Chloride 105 mEq/L (98-107); Glucose 71 mg/dL (70-105); Osmolality,Calculated 281 (280-300); Potassium 3.6 mEq/L (3.5-5.1); Sodium 137 mEq/L (136-145); eGFR For Non-African Americans > 60 (> 60)
--- NOTE | 2019-04-21 00:32 | Discharge Summary ---
Date of Encounter: 04/21/19 Time of Encounter: 00:32 - Discharge Diagnosis (1) 23 weeks gestation of Priority: Primary Status: Acute Comments: Follow-up with your primary gas pump attendant as early scheduled labor parameters discussed Discharge home (2) Abdominal cramping affecting Priority: Secondary Status: Acute Comments: Resolved with hydration - Discharge Medications Prescriptions: No Action Vitamin Tablet 1 tab PO DAILY Home Medications: Vitamin Tablet 1 tab PO DAILY 04/20/19 [History] Allergies/Adverse Reactions: Allergy/AdvReac Type Severity Reaction Status Date / Time No Known Allergies Allergy Verified 04/20/19 20:04 Data Procedures and tests throughout hospitalization: Laboratory Tests 04/20/19 04/20/19 04/20/19 20:00 20:00 20:45 Sodium 137 Potassium 3.6 Chloride 105 Carbon Dioxide 27 BUN 8 Creatinine 0.48 L Est GFR ( Amer) > 60 Est GFR (Non-Af Amer) > 60 BUN/Creatinine Ratio 17 Glucose 71 Calculated Osmolality 281 Calcium 8.5 L Urine Color Yellow Urine Clarity Cloudy A Urine pH 8.0 Ur Specific [place] 1.018 Urine Protein Negative Urine Glucose (UA) Normal Urine Ketones Negative Urine Blood Negative Urine Nitrite Negative Urine Bilirubin Negative Urine Urobilinogen Normal Ur Leukocyte Esterase Moderate H Urine Microscopic RBC 0-3 Urine Microscopic WBC 15-30 H Ur Squamous Epith Cells Many H Urine Bacteria Few Hyaline Casts None Seen Urine Opiates Screen Negative Ur Barbiturates Screen Negative Ur Phencyclidine Scrn Negative Ur Amphetamines Screen Negative U Benzodiazepines Scrn Negative Urine Cocaine Screen Negative U Marijuana (THC) Screen Negative Ur Drug Screen Interp See Below Labs on day of discharge: Labs from last 24 hours 04/20/19 04/20/19 04/20/19 20:45 20:00 20:00 Sodium 137 Potassium 3.6 Chloride 105 Carbon Dioxide 27 BUN 8 Creatinine 0.48 L Est GFR ( Amer) > 60 Est GFR (Non-Af Amer) > 60 BUN/Creatinine Ratio 17 Glucose 71 Calculated Osmolality 281 Calcium 8.5 L Urine Color Yellow Urine Clarity Cloudy A Urine pH 8.0 Ur Specific [place] 1.018 Urine Protein Negative Urine Glucose (UA) Normal Urine Ketones Negative Urine Blood Negative Urine Nitrite Negative Urine Bilirubin Negative Urine Urobilinogen Normal Ur Leukocyte Esterase Moderate H Urine Microscopic RBC 0-3 Urine Microscopic WBC 15-30 H Ur Squamous Epith Cells Many H Urine Bacteria Few Hyaline Casts None Seen Urine Opiates Screen Negative Ur Barbiturates Screen Negative Ur Phencyclidine Scrn Negative Ur Amphetamines Screen Negative U Benzodiazepines Scrn Negative Urine Cocaine Screen Negative U Marijuana (THC) Screen Negative Ur Drug Screen Interp See Below Date of admission: 04/20/19 19:30 Discharging clinician: Nellie Ocasio Anticipated date of discharge: 04/21/19 - Patient Status Disposition: Home, Self-Care Condition: Good Functional capacity at discharge: independent ambulation Overall status at discharge: patient is progressing back to baseline - Discharge Instructions - Diet and Activity Activity: increase activity as tolerated Diet: regular diet Hospital Course [employer]GER Reason for admission: other Discharge diagnosis: other Hospital course: Patient presented to labor and delivery with concern for her lower abdominal cramping and dizziness. She was monitored for several hours given IV hydration. She reports all of her symptoms have resolved. Urinalysis was negative for infection. Discharge home in stable condition Time Attestation: Total time spent providing and/or coordinating discharge services: Time Spent: Less than 30 minutes Exam - Constitutional General appearance IM: A&O X 3, pleasant, answers questions appropriately - Respiratory Respiratory exam: Present: CTAB - Cardiovascular Cardiovascular exam IM: Present: RRR, +S1, +S2 - GI/Abdominal GI/Abdominal exam IM: normal bowel sounds, no peritoneal signs - Rectal Rectal exam: deferred - Uterine Tone: Firm - Extremities Exam Extremities exam IM: Present: full ROM, normal capillary refill, normal inspection, radial pulses palpable and symmetrical - Neurological Exam Neurological exam: alert, CN II-XII intact, normal gait, oriented X3, reflexes normal, no focal deficits, strengths equal and symetr throughout - VTE Reasons for not Prescribing Prophylaxis: Treatment not Indicated - Low risk for VTE
[~2019-04-21 00:52] MED LIST: D5% in Lactated Ringers 1,000 ML IVC SCH; Ringers Solution, Lactated 1,000 ML IVC ONE; Ringers Solution, Lactated 1,000 ML ONE
== END | disposition home or self-care (01) ==
LOC: 1NENULAB
PROVIDERS: ADMIT Advanced Practice Midwife; ATTEND Advanced Practice Midwife